=== PATIENT | male | born 1930 | race Two or more races ===

== ENCOUNTER 2016-12-08 08:24 | Inpatient (IN) | payer MEDICARE, OTHER ==
[~2016-12-08] VITALS: Ht 170.2 cm; Wt 61.9 kg
[~2016-12-08 08:24] MED LIST: AMIO200T44 PO; APIX5TAB PO; CALC500T62 PO; FLUT16H NASAL; METO-325 PO; MIRALAX PO; OMEP20CA10 PO; SIMV10TA6 PO
[2016-12-08] MEDS ORDERED: AMLO2.5T PO ×2 (08:29→19:34)
[2016-12-08] MEDS ORDERED: ALBUTEROL SULFATE 2.5 MG/0.5 ML NEB SOLUTION NEB ONE (09:15)
[2016-12-08 09:26] LABS: BASOPHILS # (AUTO) 0.02 K/uL (0.00-0.20); BASOPHILS % (AUTO) 0.2 % (0.0-2.0); EOSINOPHILS # (AUTO) 0.06 K/uL (0.00-0.70); EOSINOPHILS % (AUTO) 0.75 % (1.0-6.0); HEMATOCRIT 34.1 % (41-53); HEMOGLOBIN 11.4 g/dL (13.5-17.5); LYMPHOCYTES # (AUTO) 1.3 K/uL (1.0-4.8); LYMPHOCYTES % (AUTO) 15.6 % (22.0-44.0); MEAN CORPUSCULAR HEMOGLOBIN 32.7 pg (26.0-34.0); MEAN CORPUSCULAR HGB CONC 33.4 G/dL (31.0-37.0); MEAN CORPUSCULAR VOLUME 98 fL (80-100); MONOCYTES # (AUTO) 0.7 K/uL (0.1-1.0); MONOCYTES % (AUTO) 8.2 % (2.0-9.0); NEUTROPHILS # (AUTO) 6.3 K/uL (1.8-7.7); NEUTROPHILS % (AUTO) 75.3 % (40.0-70.0); PLATELET COUNT (AUTO) 366 K/uL (150-450); RED BLOOD CELL COUNT(AUTO) 3.48 MIL/uL (4.50-5.90); RED CELL DISTRIBUTION WIDTH 13.5 % (11.5-14.5); WHITE BLOOD COUNT (AUTO) 8.3 K/uL (4.5-11.0)
[2016-12-08 09:36] LABS: INR 1.1 (0.9-1.1); PROTHROMBIN TIME 11.3 SEC (9.4-11.6)
[2016-12-08] MEDS ORDERED: 0.9% SODIUM CHLORIDE 5 ML NEB SOLUTION NEB ONE ×2 (09:36→13:35)
[2016-12-08 09:40] LABS: ANION GAP 15 mmol/L (8-16); CALCIUM, TOTAL 8.2 mg/dL (8.8-10.5); CARBON DIOXIDE 20 mmol/L (22-29); CHLORIDE 104 mmol/L (98-107); CREATININE 1.95 mg/dL (0.60-1.30); GLOMERULAR FILTR. RATE CALC 33 mL/min (>60); POTASSIUM 3.4 mmol/L (3.5-5.1); SODIUM SERUM 139 mmol/L (136-145); UREA NITROGEN, BLOOD 29 mg/dL (7-18)
[2016-12-08 09:49] LABS: B-TYPE NATRIURETIC PEPTIDE 413 pg/mL (0-100)
[2016-12-08 10:04] LABS: ALANINE AMINOTRANSFERASE 24 U/L (12-78); ALBUMIN 2.8 g/dL (3.4-5.0); ASPARTATE AMINOTRANSFERASE 27 U/L (15-37); BILIRUBIN,TOTAL 0.6 mg/dL (0.1-1.0); CREATINE KINASE MB 0.6 ng/mL (0-5); CREATINE KINASE, TOTAL 101 U/L (39-308); TOTAL PROTEIN, SERUM 7.9 g/dL (6.4-8.2)
[2016-12-08] MEDS ORDERED: METO-323 PO (11:09)
[2016-12-08] MEDS ORDERED: FUROSEMIDE 40 MG/4 ML VIAL IVP ONE (11:15)
[2016-12-08 11:21] LABS: TEMPERATURE, FAHRENHEIT, BG 98.3 FAHREN (96.0-98.6)
[2016-12-08 11:23] LABS: ABG A-A DIFF O2 168.9 mmHg (10-20.0); ABG OXYHEMOGLOBIN 91.7 % (94.0-100.0); ABG PCO2 22 mmHg (35-45); ABG PH 7.493 (7.35-7.450)
[2016-12-08 11:24] LABS: ALLEN TEST, BLOOD GAS Positive
[2016-12-08] MEDS ORDERED: LEVOFLOXACIN 500 MG/D5% WATER 100 ML IV ONE (11:30)
[2016-12-08 11:38] LABS: APPEARANCE,URINE CLEAR (CLEAR); GLUCOSE, URINE (UA) NEGATIVE (NEGATIVE); KETONES,URINE NEGATIVE (NEGATIVE); LEUKOCYTE ESTERASE ,URINE NEGATIVE (NEGATIVE); OCCULT BLOOD,URINE NEGATIVE (NEGATIVE); PH,URINE 5.5 (5.0-8.0); PROTEIN,URINE SEE CONFIRM (NEGATIVE)
[2016-12-08 11:44] LABS: ADD UA MICROSCOPIC YES
[2016-12-08 11:46] LABS: SULFOSALICYLIC ACID,URINE 3+ (Negative)
[2016-12-08 11:48] LABS: RBC,URINE 0-2 /HPF (0-2)
[2016-12-08 11:49] LABS: SQUAMOUS EPITHELIAL CELL,UR Few /LPF (None Seen); WBC,URINE 0-2 /HPF (0-5)
[2016-12-08] MEDS ORDERED: ACETAMINOPHEN 325 MG TABLET PO PRN ×2 (13:30→21:00)
[2016-12-08] MEDS ORDERED: ONDANSETRON HCL 4 MG/2 ML VIAL IVP PRN (13:30)
[2016-12-08] MEDS ORDERED: 0.9% SODIUM CHLORIDE 10 ML SYRINGE IVP PRN (13:30)
[2016-12-08] MEDS ORDERED: ALBUTEROL SULFATE 2.5 MG/0.5 ML NEB SOLUTION NEB SCH (14:00)
[2016-12-08] MEDS: IPRATROPIUM BROMIDE 0.5 MG/2.5 ML NEB SOLUTION NEB SCH (19:03)
[2016-12-08] MEDS ORDERED: AMIO200T44 PO (19:34)
[2016-12-08] MEDS ORDERED: OMEP20 PO (19:34)
[2016-12-08] MEDS ORDERED: MIRALAX PO (19:34)
[2016-12-08] MEDS ORDERED: METO25 PO (19:34)
[2016-12-08] MEDS ORDERED: FERR-89 PO (19:34)
[2016-12-08] MEDS ORDERED: CALC-789 PO (19:34)
[2016-12-08] MEDS ORDERED: CILO100T PO (19:34)
[2016-12-08] MEDS ORDERED: SIMV-259 PO (19:34)
[2016-12-08] MEDS ORDERED: APIX2.5T PO (19:34)
[2016-12-08] MEDS ORDERED: LEVALBUTEROL HCL 1.25 MG/0.5 ML NEB SOLUTION NEB SCH (20:00)
[2016-12-08] MEDS ORDERED: *CLINICAL-LEVOFLOXACIN IVPB DOSING CLINICAL ONE ×2 (21:00)
[2016-12-08] MEDS ORDERED: BISACODYL 10 MG RECTAL RECTAL SUPPOSITORY PR PRN (21:00)
[2016-12-08] MEDS ORDERED: SODIUM CHLORIDE 0.9% 1,000 ML IV ONE (21:15)
[2016-12-08 21:54] VITALS: BP 140/80
[2016-12-08] MEDS ORDERED: LEVOFLOXACIN 250 MG/D5% WATER 50 ML IV ONE (22:00)
[2016-12-08] MEDS: OxyCODONE HCL/ACETAMINOPHEN 5-325 MG TABLET PO PRN (22:01)
[2016-12-08] MEDS: DOCUSATE SODIUM 100 MG CAPSULE PO SCH (22:54)
[2016-12-08] MEDS: METOPROLOL TARTRATE 25 MG TABLET PO SCH (22:55)
[2016-12-08 23:30] VITALS: BP 137/78
[2016-12-09] MEDS: IPRATROPIUM BROMIDE 0.5 MG/2.5 ML NEB SOLUTION NEB SCH ×4 (03:36→19:48)
[2016-12-09] MEDS: ALBUTEROL SULFATE 2.5 MG/0.5 ML NEB SOLUTION NEB PRN ×3 (03:36→14:50)
[2016-12-09] MEDS: OxyCODONE HCL/ACETAMINOPHEN 5-325 MG TABLET PO PRN ×3 (03:49→17:24)
[2016-12-09 04:23] VITALS: BP 124/68
[2016-12-09 06:41] LABS: BASOPHILS % (AUTO) 0.2 % (0.0-2.0); HEMATOCRIT 29.2 % (41-53); HEMOGLOBIN 9.5 g/dL (13.5-17.5); LYMPHOCYTES # (AUTO) 1.9 K/uL (1.0-4.8); LYMPHOCYTES % (AUTO) 21.4 % (22.0-44.0); MEAN CORPUSCULAR HEMOGLOBIN 32.4 pg (26.0-34.0); MEAN CORPUSCULAR HGB CONC 32.5 G/dL (31.0-37.0); MEAN CORPUSCULAR VOLUME 100 fL (80-100); MONOCYTES # (AUTO) 0.9 K/uL (0.1-1.0); MONOCYTES % (AUTO) 9.9 % (2.0-9.0); NEUTROPHILS # (AUTO) 5.9 K/uL (1.8-7.7); NEUTROPHILS % (AUTO) 67.5 % (40.0-70.0); PLATELET COUNT (AUTO) 318 K/uL (150-450); RED BLOOD CELL COUNT(AUTO) 2.93 MIL/uL (4.50-5.90); RED CELL DISTRIBUTION WIDTH 14.1 % (11.5-14.5); WHITE BLOOD COUNT (AUTO) 8.8 K/uL (4.5-11.0)
[2016-12-09 07:00] LABS: BILIRUBIN,TOTAL 0.5 mg/dL (0.1-1.0); CALCIUM, TOTAL 7.6 mg/dL (8.8-10.5); CREATININE 2.06 mg/dL (0.60-1.30); POTASSIUM 3.6 mmol/L (3.5-5.1); TOTAL PROTEIN, SERUM 6.4 g/dL (6.4-8.2)
[2016-12-09 07:44] VITALS: BP 122/72
[2016-12-09] MEDS: METOPROLOL TARTRATE 25 MG TABLET PO SCH ×2 (08:21→21:07)
[2016-12-09] MEDS: DOCUSATE SODIUM 100 MG CAPSULE PO SCH ×2 (08:22→21:07)
[2016-12-09] MEDS ORDERED: PANTOPRAZOLE SODIUM 40 MG DR TABLET PO SCH (09:00)
[2016-12-09 11:20] VITALS: BP 114/72
[2016-12-09 15:55] VITALS: BP 143/78
[2016-12-09] MEDS ORDERED: MAGNESIUM HYDROXIDE SUSPENSION 30 ML UDCUP PO PRN (19:30)
[2016-12-09 19:39] VITALS: BP 144/88
[2016-12-09] MEDS: PANTOPRAZOLE SODIUM 40 MG DR TABLET PO SCH (21:07)
[2016-12-09] MEDS ORDERED: ONDANSETRON HCL 4 MG/2 ML VIAL IVP PRN (22:00)
[2016-12-09 23:59] VITALS: BP 141/84
[2016-12-10] VITALS (10 sets, daily range): BP systolic 132–154; BP diastolic 73–89
[2016-12-10] MEDS: ALBUTEROL SULFATE 2.5 MG/0.5 ML NEB SOLUTION NEB PRN ×3 (02:08→14:39)
[2016-12-10] MEDS: IPRATROPIUM BROMIDE 0.5 MG/2.5 ML NEB SOLUTION NEB SCH ×4 (02:08→19:44)
[2016-12-10] MEDS: GuaiFENesin/D-METHORPHAN [SUGAR-FREE] 200-20MG/10 ML SYRUP UDCUP PO PRN (09:23)
[2016-12-10] MEDS: DOCUSATE SODIUM 100 MG CAPSULE PO SCH ×2 (09:24→21:00)
[2016-12-10] MEDS: METOPROLOL TARTRATE 25 MG TABLET PO SCH ×2 (09:28→21:01)
[2016-12-10] MEDS: PANTOPRAZOLE SODIUM 40 MG DR TABLET PO SCH ×2 (09:29→21:00)
[2016-12-10] MEDS: LEVOFLOXACIN 750 MG/D5% WATER 150 ML IV SCH (09:31)
[2016-12-10] MEDS ORDERED: DOCUSATE SODIUM 100 MG CAPSULE PO PRN (13:45)
[2016-12-10] MEDS: BISACODYL 10 MG RECTAL RECTAL SUPPOSITORY PR SCH (14:12)
[2016-12-10 17:29] LABS: ABG A-A DIFF O2 60.9 mmHg (10-20.0); ABG BASE EXCESS -2.6 mmol/L (-2.0-3.0); ABG HCO3 22.6 mmol/L (22.0-26.0); ABG PCO2 32 mmHg (35-45); ABG PH 7.443 (7.35-7.450); TEMPERATURE, FAHRENHEIT, BG 98.5 FAHREN (96.0-98.6)
[2016-12-10 17:32] LABS: ALLEN TEST, BLOOD GAS Positive
[2016-12-11] MEDS: ALBUTEROL SULFATE 2.5 MG/0.5 ML NEB SOLUTION NEB PRN (02:13)
[2016-12-11] MEDS: IPRATROPIUM BROMIDE 0.5 MG/2.5 ML NEB SOLUTION NEB SCH ×4 (02:13→19:32)
[2016-12-11 04:23] VITALS: BP 131/71
[2016-12-11 07:25] VITALS: BP 128/68
[2016-12-11] MEDS: BISACODYL 10 MG RECTAL RECTAL SUPPOSITORY PR SCH ×2 (09:38→20:55)
[2016-12-11] MEDS: PANTOPRAZOLE SODIUM 40 MG DR TABLET PO SCH ×2 (09:38→20:55)
[2016-12-11] MEDS: DOCUSATE SODIUM 100 MG CAPSULE PO SCH ×2 (09:38→20:54)
[2016-12-11] MEDS: METOPROLOL TARTRATE 25 MG TABLET PO SCH ×2 (09:38→20:54)
[2016-12-11] MEDS ORDERED: LEVALBUTEROL HCL 0.63 MG/3 ML NEB SOLUTION NEB PRN (10:45)
[2016-12-11] MEDS: LEVALBUTEROL HCL 0.63 MG/3 ML NEB SOLUTION NEB SCH ×4 (11:00→23:32)
[2016-12-11] MEDS ORDERED: FUROSEMIDE 20 MG/2 ML VIAL IVP ONE (11:00)
[2016-12-11 11:20] VITALS: BP 116/70
[2016-12-11 11:42] LABS: CALCIUM, TOTAL 8.2 mg/dL (8.8-10.5); CREATININE 1.71 mg/dL (0.60-1.30); POTASSIUM 4.8 mmol/L (3.5-5.1)
[2016-12-11] MEDS: FLUTICASONE/VILANTEROL 200-25 MCG/INH INHALER [14] IH SCH (14:05)
[2016-12-11 15:22] VITALS: BP 146/77
[2016-12-11] MEDS: BENZONATATE 100 MG CAPSULE PO SCH ×2 (15:45→20:57)
[2016-12-11] MEDS: OxyCODONE HCL/ACETAMINOPHEN 5-325 MG TABLET PO PRN (15:45)
[2016-12-11 19:20] VITALS: BP 126/73
[2016-12-12] VITALS (7 sets, daily range): BP systolic 102–142; BP diastolic 50–83
[2016-12-12] MEDS: LEVALBUTEROL HCL 0.63 MG/3 ML NEB SOLUTION NEB SCH ×6 (02:43→23:21)
[2016-12-12] MEDS: IPRATROPIUM BROMIDE 0.5 MG/2.5 ML NEB SOLUTION NEB SCH ×4 (02:43→19:57)
[2016-12-12 06:38] LABS: BASOPHILS % (AUTO) 0.3 % (0.0-2.0); EOSINOPHILS % (AUTO) 2.1 % (1.0-6.0); HEMATOCRIT 28.4 % (41-53); HEMOGLOBIN 9.4 g/dL (13.5-17.5); LYMPHOCYTES # (AUTO) 1.4 K/uL (1.0-4.8); LYMPHOCYTES % (AUTO) 17.8 % (22.0-44.0); MEAN CORPUSCULAR HEMOGLOBIN 32.9 pg (26.0-34.0); MEAN CORPUSCULAR VOLUME 100 fL (80-100); MONOCYTES # (AUTO) 0.8 K/uL (0.1-1.0); MONOCYTES % (AUTO) 9.6 % (2.0-9.0); NEUTROPHILS # (AUTO) 5.7 K/uL (1.8-7.7); NEUTROPHILS % (AUTO) 70.2 % (40.0-70.0); PLATELET COUNT (AUTO) 384 K/uL (150-450); RED BLOOD CELL COUNT(AUTO) 2.85 MIL/uL (4.50-5.90); RED CELL DISTRIBUTION WIDTH 13.6 % (11.5-14.5); WHITE BLOOD COUNT (AUTO) 8.1 K/uL (4.5-11.0)
[2016-12-12] MEDS: METOPROLOL TARTRATE 25 MG TABLET PO SCH (09:00)
[2016-12-12] MEDS: BISACODYL 10 MG RECTAL RECTAL SUPPOSITORY PR SCH ×3 (09:00→21:34)
[2016-12-12] MEDS: DOCUSATE SODIUM 100 MG CAPSULE PO SCH ×2 (09:25→21:34)
[2016-12-12] MEDS: BENZONATATE 100 MG CAPSULE PO SCH ×3 (09:25→21:34)
[2016-12-12] MEDS: FLUTICASONE/VILANTEROL 200-25 MCG/INH INHALER [14] IH SCH (09:25)
[2016-12-12] MEDS: PANTOPRAZOLE SODIUM 40 MG DR TABLET PO SCH ×2 (09:25→21:34)
[2016-12-12] MEDS ORDERED: SODIUM CHLORIDE 0.9% 1,000 ML IV ONE (11:01)
[2016-12-12] MEDS: LEVOFLOXACIN 750 MG/D5% WATER 150 ML IV SCH (11:01)
[2016-12-12 17:56] LABS: POTASSIUM 4.4 mmol/L (3.5-5.1)
[2016-12-12 17:57] LABS: MAGNESIUM 1.5 mg/dL (1.80-2.40); PHOSPHORUS 4.7 mg/dL (2.5-4.9)
[2016-12-12] MEDS ORDERED: MAGNESIUM SULFATE 4 GM/WATER 100 ML IV PRN (19:00)
[2016-12-12] MEDS ORDERED: MAGNESIUM SULFATE 2 GM in DEXTROSE 5%-WATER 50 ML IV PRN (19:00)
[2016-12-12] MEDS ORDERED: MAGNESIUM OXIDE 400 MG TABLET PO PRN (19:00)
[2016-12-12 19:03] LABS: ALBUMIN 2.1 g/dL (3.4-5.0)
[2016-12-13] MEDS: METOPROLOL TARTRATE 25 MG TABLET PO SCH ×2 (00:36→08:46)
[2016-12-13] MEDS: LEVALBUTEROL HCL 0.63 MG/3 ML NEB SOLUTION NEB SCH ×3 (02:44→10:25)
[2016-12-13] MEDS: IPRATROPIUM BROMIDE 0.5 MG/2.5 ML NEB SOLUTION NEB SCH ×3 (02:44→10:25)
[2016-12-13 04:43] VITALS: BP 111/76
[2016-12-13 07:48] VITALS: BP 127/74
[2016-12-13] MEDS: DOCUSATE SODIUM 100 MG CAPSULE PO SCH (08:45)
[2016-12-13] MEDS: BENZONATATE 100 MG CAPSULE PO SCH (08:45)
[2016-12-13] MEDS: BISACODYL 10 MG RECTAL RECTAL SUPPOSITORY PR SCH (08:45)
[2016-12-13] MEDS: PANTOPRAZOLE SODIUM 40 MG DR TABLET PO SCH (08:45)
[2016-12-13] MEDS: GuaiFENesin/D-METHORPHAN [SUGAR-FREE] 200-20MG/10 ML SYRUP UDCUP PO PRN (08:46)
[2016-12-13] MEDS: FLUTICASONE/VILANTEROL 200-25 MCG/INH INHALER [14] IH SCH (08:47)
[2016-12-13 11:39] VITALS: BP 142/80
[2016-12-13] MEDS ORDERED: FUROSEMIDE 20 MG/2 ML VIAL IVP ONE (13:45)
[2016-12-13 15:30] VITALS: BP 128/72
== END 2016-12-13 16:00 | DRG 682 ==
LOC: EMS 08:27 → 5S 19:30 → 5N 21:45
PROVIDERS: ADMIT Internal Medicine; ATTEND Internal Medicine
DX: N17.0 Acute kidney failure with tubular necrosis (principal); J18.9 Pneumonia, unspecified organism; J96.00 Acute respiratory failure, unspecified whether with hypoxia or hypercapnia; E44.0 Moderate protein-calorie malnutrition; R04.2 Hemoptysis; N18.9 Chronic kidney disease, unspecified; I12.9 Hypertensive chronic kidney disease with stage 1 through stage 4 chronic kidney disease, or unspecified chronic kidney disease; K21.9 Gastro-esophageal reflux disease without esophagitis; J11.1 Influenza due to unidentified influenza virus with other respiratory manifestations; K59.00 Constipation, unspecified; D64.9 Anemia, unspecified; E83.42 Hypomagnesemia; I48.2 Chronic atrial fibrillation; Z68.21 Body mass index [BMI] 21.0-21.9, adult; Z88.0 Allergy status to penicillin; Z95.0 Presence of cardiac pacemaker; Z79.899 Other long term (current) drug therapy
CPT/HCPCS: 71250; 82805; 83605; 83735; 84100; 84132; 87040; 93005; 93306; 94640; 94667; 94668; 96365; 96375; 97162; 99285; J1940; J1956; J2405; J3475; J7030; J7060

== ENCOUNTER 2016-12-20 15:48 | Inpatient (IN) | payer MEDICARE ==
[~2016-12-20] VITALS: Ht 170.2 cm; Wt 53.2 kg
[~2016-12-20 15:48] MED LIST changes: +AMLO2.5T PO; +APIX2.5T PO; -APIX5TAB PO; +CALC-789 PO; -CALC500T62 PO; +CILO100T PO; +FERR-89 PO; -FLUT16H NASAL; -METO-325 PO; +METO25 PO; +OMEP20 PO; -OMEP20CA10 PO; +SIMV-259 PO; -SIMV10TA6 PO
[2016-12-20 16:13] LABS: ABG A-A DIFF O2 597.4 mmHg (10-20.0); ABG HCO3 25.2 mmol/L (22.0-26.0); ABG OXYHEMOGLOBIN 96.1 % (94.0-100.0); ABG PCO2 29 mmHg (35-45); ABG PH 7.517 (7.35-7.450); TEMPERATURE, FAHRENHEIT, BG 98.6 FAHREN (96.0-98.6)
[2016-12-20 16:15] LABS: EOSINOPHILS % (AUTO) 1.1 % (1.0-6.0); HEMATOCRIT 36.1 % (41-53); HEMOGLOBIN 11.6 g/dL (13.5-17.5); LYMPHOCYTES # (AUTO) 1.7 K/uL (1.0-4.8); LYMPHOCYTES % (AUTO) 13.2 % (22.0-44.0); MEAN CORPUSCULAR HEMOGLOBIN 31.6 pg (26.0-34.0); MEAN CORPUSCULAR HGB CONC 32.2 G/dL (31.0-37.0); MEAN CORPUSCULAR VOLUME 98 fL (80-100); MONOCYTES # (AUTO) 0.8 K/uL (0.1-1.0); MONOCYTES % (AUTO) 6.3 % (2.0-9.0); NEUTROPHILS # (AUTO) 10.1 K/uL (1.8-7.7); NEUTROPHILS % (AUTO) 79.4 % (40.0-70.0); PLATELET COUNT (AUTO) 385 K/uL (150-450); RED BLOOD CELL COUNT(AUTO) 3.68 MIL/uL (4.50-5.90); RED CELL DISTRIBUTION WIDTH 13.7 % (11.5-14.5); WHITE BLOOD COUNT (AUTO) 12.8 K/uL (4.5-11.0)
[2016-12-20 16:17] LABS: ALLEN TEST, BLOOD GAS Positive; IPAP, BG 14 cm H2O
[2016-12-20 16:30] LABS: INR 1.1 (0.9-1.1); PROTHROMBIN TIME 11.1 SEC (9.4-11.6)
[2016-12-20 16:33] LABS: ANION GAP 8 mmol/L (8-16); CALCIUM, TOTAL 8.1 mg/dL (8.8-10.5); CARBON DIOXIDE 28 mmol/L (22-29); CHLORIDE 98 mmol/L (98-107); CREATININE 1.71 mg/dL (0.60-1.30); GLOMERULAR FILTR. RATE CALC 38 mL/min (>60); POTASSIUM 5.3 mmol/L (3.5-5.1); SODIUM SERUM 134 mmol/L (136-145); UREA NITROGEN, BLOOD 41 mg/dL (7-18)
[2016-12-20 16:46] LABS: LACTIC ACID 2.1 mmol/L (0.4-2.0)
[2016-12-20 16:57] LABS: B-TYPE NATRIURETIC PEPTIDE 621 pg/mL (0-100)
[2016-12-20 17:00] LABS: ALANINE AMINOTRANSFERASE 40 U/L (12-78); ASPARTATE AMINOTRANSFERASE 70 U/L (15-37); BILIRUBIN,TOTAL 0.6 mg/dL (0.1-1.0); CREATINE KINASE MB 0.6 ng/mL (0-5); CREATINE KINASE, TOTAL 239 U/L (39-308); TOTAL PROTEIN, SERUM 7.2 g/dL (6.4-8.2)
[2016-12-20] MEDS ORDERED: FUROSEMIDE 40 MG/4 ML VIAL IVP ONE (17:45)
[2016-12-20] MEDS ORDERED: LEVOFLOXACIN 750 MG/D5% WATER 150 ML IV ONE (18:15)
[2016-12-20] MEDS ORDERED: ACETAMINOPHEN 325 MG TABLET PO PRN (18:15)
[2016-12-20] MEDS ORDERED: 0.9% SODIUM CHLORIDE 10 ML SYRINGE IVP PRN (18:15)
[2016-12-20] MEDS ORDERED: ONDANSETRON HCL 4 MG/2 ML VIAL IVP PRN (18:15)
[2016-12-20 18:20] LABS: REFLEX LACTIC ACID? YES YES
[2016-12-20 19:19] LABS: APPEARANCE,URINE CLEAR (CLEAR); GLUCOSE, URINE (UA) NEGATIVE (NEGATIVE); KETONES,URINE NEGATIVE (NEGATIVE); LEUKOCYTE ESTERASE ,URINE NEGATIVE (NEGATIVE); OCCULT BLOOD,URINE NEGATIVE (NEGATIVE); PROTEIN,URINE TRACE (NEGATIVE)
[2016-12-20 19:20] LABS: ADD UA MICROSCOPIC NO
[2016-12-20 21:30] VITALS: BP 122/71
[2016-12-20] MEDS ORDERED: HYDROCODONE/ACETAMINOPHEN 5-325 MG TABLET PO PRN (22:00)
[2016-12-20] MEDS ORDERED: OxyCODONE HCL/ACETAMINOPHEN 5-325 MG TABLET PO PRN (22:00)
[2016-12-20] MEDS ORDERED: SODIUM CHLORIDE 0.45% 1,000 ML IV SCH (22:00)
[2016-12-20] MEDS ORDERED: ALBUTEROL SULFATE 2.5 MG/0.5 ML NEB SOLUTION NEB PRN (22:00)
[2016-12-20] MEDS ORDERED: *CLINICAL-CEFEPIME DOSING CLINICAL ONE ×2 (22:15)
[2016-12-20 22:37] LABS: BILIRUBIN,TOTAL 0.6 mg/dL (0.1-1.0); CALCIUM, TOTAL 8.1 mg/dL (8.8-10.5); CREATININE 1.84 mg/dL (0.60-1.30); POTASSIUM 4.3 mmol/L (3.5-5.1); TOTAL PROTEIN, SERUM 6.8 g/dL (6.4-8.2)
[2016-12-20] MEDS ORDERED: VANCOMYCIN HCL 1.25 GM in DEXTROSE 5%-WATER 250 ML IV ONE (23:00)
[2016-12-20 23:17] VITALS: BP 117/66
[2016-12-20] MEDS: MethylPREDNISolone SOD SUCC 40 MG/ML VIAL IVP SCH (23:56)
[2016-12-21] VITALS (7 sets, daily range): BP systolic 93–135; BP diastolic 56–73
[2016-12-21] MEDS: MetroNIDAZOLE 500 MG/NACL 100 ML IV SCH ×4 (00:01→23:49)
[2016-12-21] MEDS ORDERED: CEFEPIME HCL 1 GM in DEXTROSE 5%-WATER 50 ML IV SCH (01:00)
[2016-12-21] MEDS: MethylPREDNISolone SOD SUCC 40 MG/ML VIAL IVP SCH ×4 (06:01→23:50)
[2016-12-21 07:28] LABS: EOSINOPHILS % (AUTO) 0 % (1.0-6.0); HEMATOCRIT 31.4 % (41-53); HEMOGLOBIN 10.1 g/dL (13.5-17.5); LYMPHOCYTES # (AUTO) 0.8 K/uL (1.0-4.8); LYMPHOCYTES % (AUTO) 5.6 % (22.0-44.0); MEAN CORPUSCULAR HEMOGLOBIN 31.5 pg (26.0-34.0); MEAN CORPUSCULAR HGB CONC 32.2 G/dL (31.0-37.0); MEAN CORPUSCULAR VOLUME 98 fL (80-100); MONOCYTES # (AUTO) 0.2 K/uL (0.1-1.0); MONOCYTES % (AUTO) 1.1 % (2.0-9.0); NEUTROPHILS # (AUTO) 13.4 K/uL (1.8-7.7); PLATELET COUNT (AUTO) 375 K/uL (150-450); RED BLOOD CELL COUNT(AUTO) 3.21 MIL/uL (4.50-5.90); RED CELL DISTRIBUTION WIDTH 14.1 % (11.5-14.5); WHITE BLOOD COUNT (AUTO) 14.4 K/uL (4.5-11.0)
[2016-12-21] MEDS: ALBUTEROL SULFATE 2.5 MG/0.5 ML NEB SOLUTION NEB SCH ×3 (07:32→19:11)
[2016-12-21] MEDS: IPRATROPIUM BROMIDE 0.5 MG/2.5 ML NEB SOLUTION NEB SCH ×3 (07:32→19:11)
[2016-12-21 07:33] LABS: NEUTROPHILS % (AUTO) 93.3 % (40.0-70.0)
[2016-12-21 07:43] LABS: ALBUMIN 1.8 g/dL (3.4-5.0); BILIRUBIN,TOTAL 0.5 mg/dL (0.1-1.0); CREATININE 2.12 mg/dL (0.60-1.30); POTASSIUM 4.4 mmol/L (3.5-5.1); TOTAL PROTEIN, SERUM 6.6 g/dL (6.4-8.2)
[2016-12-21] MEDS ORDERED: VANCOMYCIN HCL 1 GM/D5% WATER 200 ML IV SCH (08:00)
[2016-12-21] MEDS: CEFEPIME HCL 0.5 GM in DEXTROSE 5%-WATER 50 ML IV SCH (15:22)
[2016-12-21] MEDS ORDERED: BENZ-26 PO (16:55)
[2016-12-21] MEDS ORDERED: DSS100 PO (16:55)
[2016-12-21] MEDS ORDERED: FURO20 PO (16:55)
[2016-12-21 21:07] LABS: CREATINE KINASE MB 1.1 ng/mL (0-5); CREATINE KINASE, TOTAL 97 U/L (39-308)
[2016-12-22] MEDS: HYDROCODONE/ACETAMINOPHEN 5-325 MG TABLET PO PRN ×2 (00:39→05:09)
[2016-12-22] MEDS: ALBUTEROL SULFATE 2.5 MG/0.5 ML NEB SOLUTION NEB SCH ×4 (01:56→19:39)
[2016-12-22] MEDS: IPRATROPIUM BROMIDE 0.5 MG/2.5 ML NEB SOLUTION NEB SCH ×4 (01:57→19:39)
[2016-12-22 04:06] VITALS: BP 126/68
[2016-12-22] MEDS: MethylPREDNISolone SOD SUCC 40 MG/ML VIAL IVP SCH ×3 (05:09→18:30)
[2016-12-22] MEDS ORDERED: 0.9% SODIUM CHLORIDE 5 ML NEB SOLUTION NEB ONE (05:23)
[2016-12-22 07:10] LABS: EOSINOPHILS % (AUTO) 0 % (1.0-6.0); HEMATOCRIT 30.4 % (41-53); HEMOGLOBIN 10.2 g/dL (13.5-17.5); LYMPHOCYTES # (AUTO) 0.8 K/uL (1.0-4.8); LYMPHOCYTES % (AUTO) 4.5 % (22.0-44.0); MEAN CORPUSCULAR HEMOGLOBIN 32.4 pg (26.0-34.0); MEAN CORPUSCULAR HGB CONC 33.6 G/dL (31.0-37.0); MEAN CORPUSCULAR VOLUME 96 fL (80-100); MONOCYTES # (AUTO) 0.4 K/uL (0.1-1.0); MONOCYTES % (AUTO) 2.1 % (2.0-9.0); NEUTROPHILS # (AUTO) 17.4 K/uL (1.8-7.7); PLATELET COUNT (AUTO) 361 K/uL (150-450); RED BLOOD CELL COUNT(AUTO) 3.16 MIL/uL (4.50-5.90); WHITE BLOOD COUNT (AUTO) 18.6 K/uL (4.5-11.0)
[2016-12-22 07:22] LABS: NEUTROPHILS % (AUTO) 93.5 % (40.0-70.0)
[2016-12-22 07:28] LABS: ANION GAP 13 mmol/L (8-16); CALCIUM, TOTAL 8.1 mg/dL (8.8-10.5); CARBON DIOXIDE 22 mmol/L (22-29); CHLORIDE 97 mmol/L (98-107); CREATINE KINASE, TOTAL 72 U/L (39-308); CREATININE 1.99 mg/dL (0.60-1.30); GLOMERULAR FILTR. RATE CALC 32 mL/min (>60); POTASSIUM 3.8 mmol/L (3.5-5.1); SODIUM SERUM 132 mmol/L (136-145); THYROID STIMULATING HORMONE 0.49 uIU/mL (0.36-3.74); UREA NITROGEN, BLOOD 58 mg/dL (7-18)
[2016-12-22 08:13] LABS: B-TYPE NATRIURETIC PEPTIDE 237 pg/mL (0-100)
[2016-12-22 08:34] VITALS: BP 126/66
[2016-12-22] MEDS: VANCOMYCIN HCL 750 MG in DEXTROSE 5%-WATER 150 ML IV SCH (09:35)
[2016-12-22] MEDS: MetroNIDAZOLE 500 MG/NACL 100 ML IV SCH ×2 (11:46→17:50)
[2016-12-22 12:15] LABS: CREATINE KINASE, TOTAL 62 U/L (39-308)
[2016-12-22 13:10] VITALS: BP 129/62
[2016-12-22] MEDS: CEFEPIME HCL 0.5 GM in DEXTROSE 5%-WATER 50 ML IV SCH (16:35)
[2016-12-22 17:39] VITALS: BP 111/63
[2016-12-22 19:20] VITALS: BP 117/72
[2016-12-22] MEDS ORDERED: SIMV-260 PO (19:44)
[2016-12-22 19:52] LABS: ABG A-A DIFF O2 615.8 mmHg (10-20.0); ABG BASE EXCESS -0.2 mmol/L (-2.0-3.0); ABG HCO3 24.7 mmol/L (22.0-26.0); ABG PCO2 32 mmHg (35-45); ABG PH 7.484 (7.35-7.450); TEMPERATURE, FAHRENHEIT, BG 97.6 FAHREN (96.0-98.6)
[2016-12-22 19:53] LABS: ALLEN TEST, BLOOD GAS Positive; IPAP, BG 10 cm H2O
[2016-12-22] MEDS ORDERED: 0.9% SODIUM CHLORIDE 10 ML SYRINGE IVP PRN (20:00)
[2016-12-23 00:13] VITALS: BP 111/63
[2016-12-23] MEDS: MethylPREDNISolone SOD SUCC 40 MG/ML VIAL IVP SCH ×5 (00:14→23:16)
[2016-12-23] MEDS: ACETAMINOPHEN 325 MG TABLET PO PRN ×2 (00:16→12:41)
[2016-12-23] MEDS: MetroNIDAZOLE 500 MG/NACL 100 ML IV SCH ×4 (00:17→23:16)
[2016-12-23] MEDS: ALBUTEROL SULFATE 2.5 MG/0.5 ML NEB SOLUTION NEB SCH ×4 (02:04→20:48)
[2016-12-23] MEDS: IPRATROPIUM BROMIDE 0.5 MG/2.5 ML NEB SOLUTION NEB SCH ×4 (02:04→20:48)
[2016-12-23 05:50] VITALS: BP 115/68
[2016-12-23 06:41] LABS: CREATININE 1.96 mg/dL (0.60-1.30); POTASSIUM 3.6 mmol/L (3.5-5.1)
[2016-12-23 07:32] VITALS: BP 123/73
[2016-12-23 09:19] LABS: ABG A-A DIFF O2 617.8 mmHg (10-20.0); ABG BASE EXCESS -0.3 mmol/L (-2.0-3.0); ABG HCO3 24.5 mmol/L (22.0-26.0); ABG OXYHEMOGLOBIN 91.5 % (94.0-100.0); ABG PCO2 32 mmHg (35-45); ABG PH 7.476 (7.35-7.450); TEMPERATURE, FAHRENHEIT, BG 97.3 FAHREN (96.0-98.6)
[2016-12-23 09:20] LABS: ALLEN TEST, BLOOD GAS Positive; INSIPIRATORY PRESSURE, BG 10 cm H2O; IPAP, BG 5 cm H2O
[2016-12-23] MEDS: VANCOMYCIN HCL 750 MG in DEXTROSE 5%-WATER 150 ML IV SCH (09:27)
[2016-12-23 11:08] VITALS: BP 122/73
[2016-12-23] MEDS: CEFEPIME HCL 0.5 GM in DEXTROSE 5%-WATER 50 ML IV SCH (15:38)
[2016-12-23 16:14] VITALS: BP 116/72
[2016-12-23 19:57] VITALS: BP 131/76
[2016-12-23] MEDS ORDERED: PANTOPRAZOLE SODIUM 40 MG/VIAL IVP ONE (20:00)
[2016-12-24 00:03] VITALS: BP 116/69
[2016-12-24] MEDS: ALBUTEROL SULFATE 2.5 MG/0.5 ML NEB SOLUTION NEB SCH ×4 (02:04→20:23)
[2016-12-24] MEDS: IPRATROPIUM BROMIDE 0.5 MG/2.5 ML NEB SOLUTION NEB SCH ×4 (02:04→20:23)
[2016-12-24 05:18] VITALS: BP 142/73
[2016-12-24] MEDS: MethylPREDNISolone SOD SUCC 40 MG/ML VIAL IVP SCH ×3 (05:37→18:33)
[2016-12-24 07:09] LABS: CALCIUM, TOTAL 8.4 mg/dL (8.8-10.5); CREATININE 1.81 mg/dL (0.60-1.30); POTASSIUM 3.4 mmol/L (3.5-5.1)
[2016-12-24 07:12] VITALS: BP 130/63
[2016-12-24] MEDS: MetroNIDAZOLE 500 MG/NACL 100 ML IV SCH ×2 (08:01→16:42)
[2016-12-24] MEDS: VANCOMYCIN HCL 750 MG in DEXTROSE 5%-WATER 150 ML IV SCH (08:02)
[2016-12-24] MEDS: PANTOPRAZOLE SODIUM 40 MG/VIAL IVP SCH (08:02)
[2016-12-24 11:37] LABS: ABG A-A DIFF O2 614.3 mmHg (10-20.0); ABG BASE EXCESS -1.9 mmol/L (-2.0-3.0); ABG HCO3 23.6 mmol/L (22.0-26.0); ABG OXYHEMOGLOBIN 93.6 % (94.0-100.0); ABG PCO2 29 mmHg (35-45); ABG PH 7.491 (7.35-7.450); TEMPERATURE, FAHRENHEIT, BG 98.6 FAHREN (96.0-98.6)
[2016-12-24 11:38] LABS: ALLEN TEST, BLOOD GAS Positive
[2016-12-24 11:39] LABS: IPAP, BG 10 cm H2O
[2016-12-24 12:00] VITALS: BP 131/83
[2016-12-24] MEDS ORDERED: SODIUM CHLORIDE 0.9% 250 ML IV ONE (12:21)
[2016-12-24] MEDS: CEFEPIME HCL 0.5 GM in DEXTROSE 5%-WATER 50 ML IV SCH (15:46)
[2016-12-24 16:00] VITALS: BP 122/68
[2016-12-24 20:00] VITALS: BP 147/84
[2016-12-25] VITALS (7 sets, daily range): BP systolic 123–163; BP diastolic 78–99
[2016-12-25] MEDS: MetroNIDAZOLE 500 MG/NACL 100 ML IV SCH ×4 (00:06→23:59)
[2016-12-25] MEDS: MethylPREDNISolone SOD SUCC 40 MG/ML VIAL IVP SCH ×5 (00:07→23:59)
[2016-12-25] MEDS: ALBUTEROL SULFATE 2.5 MG/0.5 ML NEB SOLUTION NEB SCH ×4 (02:02→19:41)
[2016-12-25] MEDS: IPRATROPIUM BROMIDE 0.5 MG/2.5 ML NEB SOLUTION NEB SCH ×4 (02:02→19:41)
[2016-12-25] MEDS: MORPHINE SULFATE 2 MG/ML SYRINGE IVP PRN (05:15)
[2016-12-25 05:52] LABS: CALCIUM, TOTAL 8.4 mg/dL (8.8-10.5); CREATININE 1.76 mg/dL (0.60-1.30); POTASSIUM 3.5 mmol/L (3.5-5.1)
[2016-12-25 07:36] LABS: ABG A-A DIFF O2 612.3 mmHg (10-20.0); ABG BASE EXCESS 0.9 mmol/L (-2.0-3.0); ABG HCO3 25.5 mmol/L (22.0-26.0); ABG OXYHEMOGLOBIN 91.8 % (94.0-100.0); ABG PCO2 33 mmHg (35-45); ABG PH 7.483 (7.35-7.450); TEMPERATURE, FAHRENHEIT, BG 98.6 FAHREN (96.0-98.6)
[2016-12-25 07:39] LABS: ALLEN TEST, BLOOD GAS Positive
[2016-12-25 07:40] LABS: IPAP, BG 10 cm H2O
[2016-12-25] MEDS: PANTOPRAZOLE SODIUM 40 MG/VIAL IVP SCH (09:59)
[2016-12-25] MEDS: VANCOMYCIN HCL 750 MG in DEXTROSE 5%-WATER 150 ML IV SCH (11:58)
[2016-12-25] MEDS: CEFEPIME HCL 0.5 GM in DEXTROSE 5%-WATER 50 ML IV SCH (16:14)
[2016-12-26] VITALS (9 sets, daily range): BP systolic 76–170; BP diastolic 50–101
[2016-12-26] MEDS: ALBUTEROL SULFATE 2.5 MG/0.5 ML NEB SOLUTION NEB SCH ×4 (01:52→19:28)
[2016-12-26] MEDS: IPRATROPIUM BROMIDE 0.5 MG/2.5 ML NEB SOLUTION NEB SCH ×4 (01:52→19:28)
[2016-12-26] MEDS: MORPHINE SULFATE 2 MG/ML SYRINGE IVP PRN ×2 (02:59→07:24)
[2016-12-26] MEDS: MethylPREDNISolone SOD SUCC 40 MG/ML VIAL IVP SCH ×3 (05:59→22:00)
[2016-12-26 06:45] LABS: CALCIUM, TOTAL 8.2 mg/dL (8.8-10.5); CREATININE 1.97 mg/dL (0.60-1.30); POTASSIUM 3.8 mmol/L (3.5-5.1)
[2016-12-26] MEDS: MetroNIDAZOLE 500 MG/NACL 100 ML IV SCH ×2 (08:05→22:00)
[2016-12-26] MEDS: PANTOPRAZOLE SODIUM 40 MG/VIAL IVP SCH (08:05)
[2016-12-26] MEDS: VANCOMYCIN HCL 750 MG in DEXTROSE 5%-WATER 150 ML IV SCH (08:06)
[2016-12-26] MEDS ORDERED: LABETALOL HCL 5 MG/ML 20 ML VIAL IVP ONE (10:15)
[2016-12-26 10:31] LABS: ABG A-A DIFF O2 584.6 mmHg (10-20.0); ABG BASE EXCESS -0.6 mmol/L (-2.0-3.0); ABG HCO3 24.2 mmol/L (22.0-26.0); ABG OXYHEMOGLOBIN 87.2 % (94.0-100.0); ABG PCO2 35 mmHg (35-45); ABG PH 7.447 (7.35-7.450); TEMPERATURE, FAHRENHEIT, BG 98.6 FAHREN (96.0-98.6)
[2016-12-26 10:32] LABS: ALLEN TEST, BLOOD GAS Positive; IPAP, BG 10 cm H2O
[2016-12-26] MEDS: CEFEPIME HCL 0.5 GM in DEXTROSE 5%-WATER 50 ML IV SCH (15:10)
[2016-12-26 15:54] LABS: ABG A-A DIFF O2 637.8 mmHg (10-20.0); ABG BASE EXCESS -5.7 mmol/L (-2.0-3.0); ABG HCO3 20.2 mmol/L (22.0-26.0); ABG PCO2 30 mmHg (35-45); ABG PH 7.412 (7.35-7.450); TEMPERATURE, FAHRENHEIT, BG 98.6 FAHREN (96.0-98.6)
[2016-12-26 15:55] LABS: ALLEN TEST, BLOOD GAS Positive; IPAP, BG 14 cm H2O
[2016-12-26] MEDS ORDERED: MIDAZOLAM HCL 5 MG/ML VIAL ONE (16:08)
[2016-12-26] MEDS ORDERED: SUCCINYLCHOLINE CHLORIDE 20 MG/ML 10 ML VIAL ONE (16:09)
[2016-12-26] MEDS ORDERED: MIDAZOLAM HCL 5 MG/ML VIAL IVP ONE (16:10)
[2016-12-26] MEDS ORDERED: SUCCINYLCHOLINE CHLORIDE 20 MG/ML 10 ML VIAL IVP ONE (16:11)
[2016-12-26] MEDS ORDERED: PHENYLEPHRINE 200 MG/D5%-WATER 250 ML IV ONE (16:25)
[2016-12-26] MEDS: PHENYLEPHRINE 200 MG/D5%-WATER 250 ML IV PRN (16:30)
[2016-12-26] MEDS ORDERED: PROPOFOL 1000 MG/ISO-OSM 100 ML IV ONE (16:53)
[2016-12-26] MEDS: PROPOFOL 1000 MG/ISO-OSM 100 ML IV PRN ×2 (17:00→21:36)
[2016-12-26 17:10] LABS: ABG HCO3 20.9 mmol/L (22.0-26.0); ABG OXYHEMOGLOBIN 88.6 % (94.0-100.0); ABG PCO2 32 mmHg (35-45); ABG PH 7.405 (7.35-7.450); TEMPERATURE, FAHRENHEIT, BG 98.6 FAHREN (96.0-98.6)
[2016-12-26 17:11] LABS: ALLEN TEST, BLOOD GAS Positive
[2016-12-27] VITALS (10 sets, daily range): BP systolic 91–118; BP diastolic 58–74
[2016-12-27] MEDS ORDERED: SODIUM CHLORIDE 0.9% 250 ML IV ONE (00:40)
[2016-12-27] MEDS: MethylPREDNISolone SOD SUCC 40 MG/ML VIAL IVP SCH ×4 (00:41→18:07)
[2016-12-27] MEDS: MetroNIDAZOLE 500 MG/NACL 100 ML IV SCH ×3 (00:41→17:25)
[2016-12-27] MEDS: PROPOFOL 1000 MG/ISO-OSM 100 ML IV PRN ×2 (00:43→18:59)
[2016-12-27] MEDS: IPRATROPIUM BROMIDE 0.5 MG/2.5 ML NEB SOLUTION NEB SCH ×4 (01:54→19:53)
[2016-12-27] MEDS: ALBUTEROL SULFATE 2.5 MG/0.5 ML NEB SOLUTION NEB SCH ×4 (01:54→19:53)
[2016-12-27 06:45] LABS: CALCIUM, TOTAL 8.2 mg/dL (8.8-10.5); CREATININE 4.25 mg/dL (0.60-1.30); POTASSIUM 5.5 mmol/L (3.5-5.1)
[2016-12-27] MEDS ORDERED: VANCOMYCIN HCL 1 GM/D5% WATER 200 ML IV PRN (08:00)
[2016-12-27] MEDS ORDERED: SODIUM CHLORIDE 0.9% 1,000 ML IV ONE (08:00)
[2016-12-27] MEDS: PANTOPRAZOLE SODIUM 40 MG/VIAL IVP SCH (08:15)
[2016-12-27 08:29] LABS: ABG A-A DIFF O2 586.6 mmHg (10-20.0); ABG BASE EXCESS -6.9 mmol/L (-2.0-3.0); ABG HCO3 19.1 mmol/L (22.0-26.0); ABG PCO2 42 mmHg (35-45); ALLEN TEST, BLOOD GAS POS; TEMPERATURE, FAHRENHEIT, BG 99.3 FAHREN (96.0-98.6)
[2016-12-27 09:54] LABS: HEMATOCRIT 33.1 % (41-53); HEMOGLOBIN 10.9 g/dL (13.5-17.5); MEAN CORPUSCULAR HEMOGLOBIN 31.5 pg (26.0-34.0); MEAN CORPUSCULAR VOLUME 96 fL (80-100); RED BLOOD CELL COUNT(AUTO) 3.47 MIL/uL (4.50-5.90); RED CELL DISTRIBUTION WIDTH 16.4 % (11.5-14.5)
[2016-12-27 09:56] LABS: PLATELET COUNT (AUTO) 30 K/uL (150-450); WHITE BLOOD COUNT (AUTO) 29.6 K/uL (4.5-11.0)
[2016-12-27 10:32] LABS: BAND NEUTROPHILS % (MANUAL) 3 % (1-5); LYMPHOCYTES % (MANUAL) 3 % (22-44); METAMYELOCYTES % 2 % (0-0); TOTAL CELLS COUNTED 100
[2016-12-27 10:33] LABS: RBC MORPHOLOGY COMMENT ABNORMAL RBC MORPH
[2016-12-27] MEDS ORDERED: SODIUM CHLORIDE 0.45% 1,000 ML IV SCH (11:12)
[2016-12-27] MEDS ORDERED: HEPARIN SODIUM,PORCINE 1,000 UNITS/ML VIAL IVP ONE ×3 (12:00→19:00)
[2016-12-27] MEDS ORDERED: MANNITOL 25%-12.5 GM/50 ML VIAL IVP ONE (12:00)
[2016-12-27 12:56] LABS: CALCIUM, TOTAL 7.4 mg/dL (8.8-10.5); CREATININE 5.15 mg/dL (0.60-1.30); MAGNESIUM 2.9 mg/dL (1.80-2.40)
[2016-12-27] MEDS: ALBUMIN HUMAN 25%-25GM/100ML 100 ML IV SCH ×2 (13:32→18:07)
[2016-12-27 13:58] LABS: PHOSPHORUS 9.8 mg/dL (2.5-4.9)
[2016-12-27] MEDS ORDERED: SODIUM POLYSTYRENE SULFONATE 15 GM/60 ML SUSPENSION BOTTLE PO ONE (15:15)
[2016-12-27] MEDS: CEFEPIME HCL 0.5 GM in DEXTROSE 5%-WATER 50 ML IV SCH (16:59)
[2016-12-27] MEDS ORDERED: SODIUM CHLORIDE 0.9% 2,000 ML IV ONE (18:29)
[2016-12-27] MEDS ORDERED: ALBUMIN HUMAN 25%-12.5GM/50ML IV BOTTLE IV ONE (19:00)
[2016-12-27] MEDS ORDERED: MANNITOL 25%-12.5 GM/50 ML VIAL IVP PRN (19:00)
[2016-12-27] MEDS: PHENYLEPHRINE 200 MG/D5%-WATER 250 ML IV PRN (20:07)
[2016-12-27] MEDS ORDERED: NOREPINEPHRINE 4 MG/D5%-WATER 250 ML IV ONE (23:29)
[2016-12-27] MEDS ORDERED: NOREPINEPHRINE 4 MG/D5%-WATER 250 ML IV PRN (23:47)
[2016-12-27] MEDS ORDERED: EPINEPHrine 1:10,000 [1 MG/10 ML] SYRINGE ONE (23:52)
[2016-12-28] MEDS ORDERED: VASOPRESSIN 100 UNITS in DEXTROSE 5%-WATER 245 ML IV PRN (00:01)
[2016-12-28] MEDS ORDERED: EPINEPHrine 1:10,000 [1 MG/10 ML] SYRINGE ONE (00:24)
== END 2016-12-28 00:20 | disposition expired | DRG 871 ==
LOC: EMS 15:50 → 5S 20:07 → ICU 12-24 11:23
PROVIDERS: ADMIT Internal Medicine; ATTEND Internal Medicine
PROC: 5A09557 Assistance with Respiratory Ventilation, Greater than 96 Consecutive Hours, Continuous Positive Airway Pressure (ICD-10-PCS; 2016-12-20)
PROC: 5A1945Z Respiratory Ventilation, 24-96 Consecutive Hours (ICD-10-PCS; 2016-12-26)
PROC: 0DH67UZ Insertion of Feeding Device into Stomach, Via Natural or Artificial Opening (ICD-10-PCS; 2016-12-26)
PROC: 0BH17EZ Insertion of Endotracheal Airway into Trachea, Via Natural or Artificial Opening (ICD-10-PCS; 2016-12-26)
PROC: 06HY33Z Insertion of Infusion Device into Lower Vein, Percutaneous Approach (ICD-10-PCS; principal; 2016-12-27)
PROC: 5A1D00Z (ICD-10-PCS; 2016-12-27)
DX: A41.9 Sepsis, unspecified organism (principal); J18.9 Pneumonia, unspecified organism; J96.01 Acute respiratory failure with hypoxia; E43 Unspecified severe protein-calorie malnutrition; R65.21 Severe sepsis with septic shock; G93.40 Encephalopathy, unspecified; N17.9 Acute kidney failure, unspecified; I13.0 Hypertensive heart and chronic kidney disease with heart failure and stage 1 through stage 4 chronic kidney disease, or unspecified chronic kidney disease; Z68.1 Body mass index [BMI] 19.9 or less, adult; N18.3 Chronic kidney disease, stage 3 (moderate); E87.5 Hyperkalemia; K21.9 Gastro-esophageal reflux disease without esophagitis; J11.1 Influenza due to unidentified influenza virus with other respiratory manifestations; I50.9 Heart failure, unspecified; I48.2 Chronic atrial fibrillation; D64.9 Anemia, unspecified; I25.10 Atherosclerotic heart disease of native coronary artery without angina pectoris; M19.90 Unspecified osteoarthritis, unspecified site; I95.9 Hypotension, unspecified; I27.2 Other secondary pulmonary hypertension; M47.814 Spondylosis without myelopathy or radiculopathy, thoracic region; K44.9 Diaphragmatic hernia without obstruction or gangrene; R91.1 Solitary pulmonary nodule; I70.90 Unspecified atherosclerosis; N28.1 Cyst of kidney, acquired; Z79.899 Other long term (current) drug therapy; Z88.0 Allergy status to penicillin; Z95.0 Presence of cardiac pacemaker; Z87.01 Personal history of pneumonia (recurrent)
CPT/HCPCS: 70450; 71250; 82805; 83605; 83735; 84100; 84443; 86480; 87040; 87081; 87340; 90935; 92950; 93005; 93306; 94002; 94003; 94640; 94660; 94667; 94668; 96365; 96375; 99291; C9113; J0171; J0330; J0692; J1644; J1940; J1956; J2150; J2250; J2270; J2370; J2704; J2920; J3370; J3490; J7030; J7050; J7060; P9046